=== PATIENT | male | born 1960 | race African-American/Black ===

== ENCOUNTER 2017-05-29 22:31 | Emergency (ER) | payer MEDICAID ==
[~2017-05-29] VITALS: Ht 177.8 cm; Wt 107.0 kg
[2017-05-30 00:46] VITALS: BP 106/71
== END 2017-05-30 00:55 | disposition home or self-care (01) ==
LOC: ER 22:57
DX: R55 Syncope and collapse (principal); W10.9XXA Fall (on) (from) unspecified stairs and steps, initial encounter
CPT/HCPCS: 71045; 82962; 93005; 99284